=== PATIENT | male | born 1980 | race African-American/Black ===

== ENCOUNTER 2016-10-05 23:50 | Emergency (ER) | payer SELFPAY ==
[~2016-10-05] VITALS: Ht 182.9 cm; Wt 143.0 kg
[~2016-10-05 23:50] MED LIST: NORCO 5/3251 TABLET PO; PEN-VEE K,VEET500 MG PO
[2016-10-06 00:33] LABS: INFLUENZA A VIRAL ANTIGEN NEGATIVE; INFLUENZA B VIRAL ANTIGEN POSITIVE
[2016-10-06 00:42] LABS: HEMATOCRIT 49.2 % (38.0-50.0); MCH 29.5 PG (29.0-34.0); MCHC 34.8 G/DL (30.0-36.0); MCV 84.8 FL (86-99); MEAN PLAT.VOLUME 11.8 uM^3 (9.0-12.4); PLATELET COUNT 250 K/uL (156-360); RBC DIS.WIDTH-CV 13.1 % (11.8-14.6); RBC DIS.WIDTH-SD 40.8 % (39-53); WHITE BLOOD COUNT 8.2 K/uL (4.1-10.2)
[2016-10-06 01:06] LABS: CHLORIDE 98 mEq/L (99-109); POTASSIUM 4.1 mEq/L (3.7-5.4); SODIUM 130 mEq/L (136-147)
[2016-10-06 01:08] LABS: GLUCOSE 394 mg/dL (70-99)
[2016-10-06 01:10] LABS: ANION GAP 15 MEQ/L (2-14)
[2016-10-06 01:12] LABS: GFR ESTIMATE (CALCULATED) > 59 mL/min/
[2016-10-06 01:13] LABS: UREA NITROGEN (BUN) 10 mg/dL (9-23)
[2016-10-06] MEDS ORDERED: ZOFRAN4 MG PO (04:06)
[2016-10-06] MEDS ORDERED: TAMIFLU75 MG PO (04:06)
[2016-10-06] MEDS ORDERED: MOTRIN800 MG PO (04:06)
[2016-10-06 04:33] VITALS: BP 130/69
== END 2016-10-06 04:36 | disposition home or self-care (01) ==
LOC: EME 23:50
DX: J10.1 Influenza due to other identified influenza virus with other respiratory manifestations (principal); R73.9 Hyperglycemia, unspecified; E86.0 Dehydration; R11.2 Nausea with vomiting, unspecified; F17.200 Nicotine dependence, unspecified, uncomplicated
CPT/HCPCS: 71020; 74177; 80048; 85027; 87502; 99281; 99285